=== PATIENT | female | born 1970 | race Caucasian/White ===

== ENCOUNTER → 2024-04-30 | Outpatient (CLI) | payer BC | END | disposition home or self-care (01) | LOC: LABWHC1 09:56 | PROVIDERS: ATTEND Internal Medicine Interventional Cardiology | DX: Z00.00 Encounter for general adult medical examination without abnormal findings (principal) | CPT/HCPCS: 36415; 85379 ==

== ENCOUNTER → 2024-07-19 | Outpatient (CLI) | payer BC ==
--- NOTE | 2024-07-19 11:16 | CT ---
EXAMINATION TYPE: CT angio chest DATE OF EXAM: 07/19/2024 10:15 AM COMPARISON: None. CLINICAL INDICATION: Female, 54 years old with history of I71.20 ANEURYSM, TECHNIQUE: CT of the chest is performed on a spiral scan at 2 mm thick sections. Study is performed with intravenous contrast timed for evaluation for thoracic aneurysm. This will limit additional por tions of the evaluation. 3-D MIP images reconstructed by the technologist are reviewed on the [facility] er in the coronal and sagittal planes. Contrast used:100 mL of Isovue 370 , (none if empty) Oral contrast used: (none if empty) CT DLP: 813.20 mGycm, Automated exposure control for dose reduction was used. FINDINGS: No persistent filling defects are evident to suggest an acute pulmonary embolism. No mediastinal or hilar adenopathy enlarged by CT criteria is evident. The ascending aorta diameter at the level of the main pulmonary artery is 4.3 cm. The main pulmonary artery diameter at the bifurcation is 2.5 cm. There is a three-vessel arch. Lung windows are clear. Bilateral breast prostheses are present. Limited CT sections were through the upper abdomen. Upper abdomen appears unremarkable. IMPRESSION: 1. Ascending thoracic aortic aneurysm 4. 4 cm. Aorta tapers to its visualized course. [facility], , 07/19/2024 11:13 AM
== END | disposition home or self-care (01) ==
LOC: RADCTMAIN 09:45
PROVIDERS: ATTEND Internal Medicine Interventional Cardiology
DX: I71.21 Aneurysm of the ascending aorta, without rupture (principal)
CPT/HCPCS: 71275; Q9967